=== PATIENT | male | born 1990 ===

== ENCOUNTER 2021-11-29 05:03 | Day surgery (SDC) | payer OTHER | END 2021-11-29 13:40 | disposition home or self-care (01) | LOC: CIR.AMB 05:03 → ADM 07:00 → CIR.AMB 07:00 | PROVIDERS: ATTEND Specialist | DX: K40.90 Unilateral inguinal hernia, without obstruction or gangrene, not specified as recurrent (principal); Z91.013 Allergy to seafood; J45.909 Unspecified asthma, uncomplicated; Z87.891 Personal history of nicotine dependence; Z71.6 Tobacco abuse counseling ==